=== PATIENT | male | born 1990 | race Caucasian/White ===

== ENCOUNTER 2018-02-01 05:35 | Emergency (ER) | payer OTHER ==
[~2018-02-01] VITALS: Ht 177.8 cm; Wt 145.3 kg
[~2018-02-01 05:35] MED LIST: ILOTYCIN1 GM RIGHT EYE; VIGAMOX 0.60 DROP/3 BOTH EYES
[2018-02-01] MEDS ORDERED: OCUFLOX 0.100 DROP/5 RIGHT EYE (07:07)
[2018-02-01] MEDS ORDERED: ERYTHROMYC1 APPLICAT RIGHT EYE (07:07)
[2018-02-01 07:29] VITALS: BP 138/77
== END 2018-02-01 07:29 | disposition home or self-care (01) ==
LOC: EME 05:35
PROC: 08C8XZZ Extirpation of Matter from Right Cornea, External Approach (ICD-10-PCS; principal; 2018-02-01)
DX: T15.01XA Foreign body in cornea, right eye, initial encounter (principal); W31.89XA Contact with other specified machinery, initial encounter
CPT/HCPCS: 99281; 99284